=== PATIENT | female | born 1985 | race African-American/Black ===

== ENCOUNTER 2021-05-05 18:55 | Inpatient (IN) ==
[2021-05-05 19:55] LABS: Eosinophils # (auto) 0.03 K/uL (0-0.5); Eosinophils % (auto) 0.3 %; Hematocrit (blood only) 35.2 % (37-47); Hemoglobin 10.6 g/dL (12.0-16.0); Immature Granulocytes # (auto) 0.02 K/uL (0.00-0.02); Immature Granulocytes % (auto) 0.2 %; Lymphocytes # (auto) 1.24 K/uL (1.2-3.4); Lymphocytes % (auto) 10.4 %; Mean Corpuscular Hemoglobin 23.7 pg (25-34); Mean Corpuscular Hgb Conc 30.1 g/dL (32-36); Mean Corpuscular Volume 78.6 fL (80-100); Mean Platelet Volume 13.7 fL (7.4-10.4); Neutrophils # (auto) 10.01 K/uL (1.4-6.5); Neutrophils % (auto) 84.1 %; Platelet Count 375 K/uL (130-400); RDW Coefficient of Variation 14.7 % (11.5-14.5); RDW Standard Deviation 41.6 fL (36.4-46.3); Red Blood Count 4.48 M/uL (4.2-5.4)
[2021-05-05 20:24] LABS: Albumin Globulin Ratio 1.1 (0.9-2); BUN Creatinine Ratio 17.4 (10-20); Bilirubin,Total 1.3 mg/dl (0.2-1.0); Calcium 8.9 mg/dl (8.5-10.1); Creatinine Clr Calc Pharmacy 190.7 ml/min; Est GFR (African American) 147.3 ml/min; Est GFR (Non-African American) 127.1 ml/min; Globulin 3.6 gm/dl (2.5-4.0); Potassium 3.8 mmol/L (3.5-5.1); Total Protein 7.6 gm/dl (6.0-8.3)
[2021-05-05] MEDS ORDERED: SODIUM CHLORIDE 0.9% 1000ML 1,000 ML IV ONE (20:33)
[2021-05-05] MEDS ORDERED: KETOROLAC TROMETHAMINE 15 MG/ML VIAL IV STA (20:33)
[2021-05-05] MEDS: ONDANSETRON INJ 2 MG/ML 2 ML VIAL IV STA (20:52)
--- NOTE | 2021-05-05 21:18 | XRay Report ---
XR abdomen 2V w PA chest CLINICAL HISTORY: epigastric pain. COMPARISON STUDY: No previous studies for comparison. TECHNIQUE: Single view of the chest. Supine and upright views of the abdomen. FINDINGS: Single frontal view of the chest demonstrates the cardiomediastinal silhouette to be within normal li mits. The lungs are clear of acute alveolar opacities. There is no evidence for pleural effusion. The re is no evidence for vascular congestion. There is no acute osseous pathology. Abdomen: There is no free air or significant air-fluid levels present. The bowel gas pattern is withi n normal limits without evidence for dilatation or obstruction. However, there is evidence for fecal stasis within the ascending and transverse colon. There is no evidence for organomegaly or gross intr a-abdominal mass. No abnormal calcifications are seen along the course of the urinary tracts bilatera lly. No acute osseous pathology. IMPRESSION: 1. 1. No acute chest disease. 2. Fecal stasis involving the ascending and transverse colon. ACT 112: Negative or not required by law. Electronically signed by: Pb Love M.D. 05/05/2021 9:17 PM
--- NOTE | 2021-05-05 21:33 | Emergency Department Note ---
History of Present Illness General Chief Complaint: Abdominal Pain Stated Complaint: ABD PAIN Time Seen by Provider: 05/05/21 20:32 History of Present Illness Provider Complaint: abdominal pain Onset (ago): 8 hour(s) Pain Consistency: intermittent Location: RUQ and epigastric Radiation: R flank Severity: moderate Maximum Pain Intensity: 6 Current Pain Intensity: 6 Quality: + stabbing, + aching, + sharp and + dull Relieved By: + nothing Exacerbated By: + nothing Context: no foreign travel, no possible food poisoning, no sick contacts, no recent antibiotic use, no recent surgery/procedure or no recent injury Associated Symptoms: + nausea and + vomiting; no diarrhea, no fever, no chills, no constipation, no dysuria, no hematemesis, no hematochezia, no melena, no hematuria, no anorexia, no syncope, no headache, no neck pain, no chest pain, no weakness and no breathing difficulty Home Medications Medication Instructions Recorded Confirmed Type metformin 1,000 mg tablet 1,000 mg PO BID 05/05/21 05/05/21 History norethindrone 1 mg-ethinyl 1 tab PO PM 05/05/21 05/05/21 History estradiol 20 mcg (24)-iron 75 mg (4) tablet (Blisovi 24 Fe) sitagliptin 100 mg tablet (Januvia) 100 mg PO QAM 05/05/21 05/05/21 History Allergies Allergy/AdvReac Type Severity Reaction Status Date / Time No Known Allergies Allergy Unverified 05/05/21 22:01 Past Med/Surg History Medical History (Updated 05/05/21 @ 22:23 by Benjamin Null) No pertinent family history No pertinent past medical history Surgical History (Updated 05/05/21 @ 21:30 by Benjamin Null) No pertinent past surgical history Social History Smoking Status: Never smoker Preferred Language: Slovak Feels Safe at Home: Yes Review of Systems A total of 10 systems reviewed and were otherwise negative Physical Exam Vital Signs: Vital Signs - 24 hr 05/05/21 18:58 05/05/21 20:56 05/05/21 22:00 Temperature 36.2 C L Temperature Source Temporal Artery Sc an Pulse Rate 72 Pulse Rate [Right Finger] 70 92 H Pulse Rhythm Regular Pulse Rhythm [Righ t Finger] Regular Regular Pulse Strength Normal Pulse Strength [Ri ght Finger] Normal Normal Respiratory Rate 18 20 18 Respiratory Effort / Characteristics Non-Labored Sponta neous Non-Labored Non-Labored Respiratory Depth Normal Normal Normal Respiratory Patter n Regular Regular Blood Pressure 120/82 Blood Pressure [Le ft Arm] 139/92 138/60 Blood Pressure Libertad n 94 Blood Pressure Libertad n [Left Arm] 107 86 Blood Pressure Pos ition Sitting Blood Pressure Pos ition [Left Arm] Lying Lying Pulse Oximetry 100 98 98 Oxygen Delivery Me thod Room Air Room Air Room Air Sepsis Recent Feve r Within 48 Hours No Sepsis New/Unexpla ined Change in Men jessi Status N/A Sepsis Action Take n by Nursing No Action Required Physical Exam: Physical Exam GENERAL: She is oriented to person, place, and time. She appears well-developed and well-nourished. She does not appear distressed. HENT: Exam performed. -Head: Normocephalic and atraumatic. -Right Ear: External ear normal. No mastoid tenderness. -Left Ear: External ear normal. No mastoid tenderness. -Mouth/Throat: The oropharynx is clear and moist. No trismus in the jaw. No dental abscesses or uvula swelling. No oropharyngeal exudate or tonsillar abscesses. EYES: Conjunctivae and EOM are normal. Pupils are equal, round, and reactive to light. Right eye exhibits no discharge. Left eye exhibits no discharge. No scleral icterus. NECK: Normal range of motion. Neck supple. No JVD present. No spinous process tenderness present. No carotid bruit present. No rigidity. No tracheal deviation and normal range of motion present. No Brudzinski's sign and no Kernig's sign noted. CV: Normal rate, regular rhythm, normal heart sounds and intact distal pulses. There is no peripheral edema. Palpable radial pulses bue. PULM/CHEST: Effort normal and breath sounds normal. No respiratory distress. No stridor. She has no wheezes. She has no rales. -Chest Wall: She exhibits no tenderness. ABD: The abdomen is soft. Bowel sounds are normal. She has no distension. No mass is present. There is tenderness to palpation of the right upper quadrant and epigastric areas There is no rebound, no guarding, no Valladares's sign and no tenderness at McBurney's point. Rovsig negative MUSC/SKEL: Normal range of motion. There is no peripheral edema, tenderness or deformity. LYMPH: No cervical adenopathy. NEURO: She is alert and oriented to person, place, and time. She has normal strength. No cranial nerve deficit or sensory deficit. Coordination and gait normal. GCS eye subscore is 4. GCS verbal subscore is 5. GCS motor subscore is 6. Cerebellar tests wnl. SKIN: Skin is warm and dry. She is not diaphoretic. PSYCH: She has a normal mood and affect. Behavior is normal. Judgment and thought content normal. Course Course 2031: The patient was evaluated in room A10. A complete history and physical exam was performed Cardiac monitoring: An order was placed for continuous cardiac monitoring. The monitor shows a rate of 70 with sinus rhythm 1: Vital signs stable. Labs show an elevated lipase greater than 5000. Tota l bilirubin 1.3, AST 277, ALT 125, alkaline phosphatase 251. It is thought that the patient is suffering from pancreatitis most likely due to gallstones. Ultrasound is negative for acute cholecystitis. Acute abdominal series is negative. Patient will be admitted to the [facility] the hospitalist team for pancreatitis most likely secondary to gallstones. Dr. Justice's team will be notified. Administered Medications Discontinued Medications Sodium Chloride (Nss 1000ml) 1,000 mls @ 999 mls/hr IV .Q1H1M ONE Stop: 05/05/21 21:33 Last Admin: 05/05/21 20:53 Dose: 999 mls/hr Documented by: [id number] Ketorolac Tromethamine (Ketorolac Tromethamine 15 Mg/Ml Vial) 15 mg IV NOW STA Stop: 05/05/21 20:34 Last Admin: 05/05/21 20:53 Dose: 15 mg Documented by: [id number] Ondansetron HCl (Ondansetron Inj 2 Mg/Ml 2 Ml Vial) 4 mg IV NOW STA Stop: 05/05/21 20:34 Last Admin: 05/05/21 20:52 Dose: 4 mg Documented by: [id number] Admin: 05/05/21 20:52 Dose: 4 mg Documented by: [id number] Medical Decision Making Laboratory Data Result diagrams: 05/05/21 19:45 05/05/21 19:45 Lab Results 05/05/21 05/05/21 Range/Units 19:45 19:45 WBC 11.90 H (4.8-10.8) K/uL RBC 4.48 (4.2-5.4) M/uL Hgb 10.6 L (12.0-16.0) g/dL Hct 35.2 L (37-47) % MCV 78.6 L (80-100) fL MCH 23.7 L (25-34) pg MCHC 30.1 L (32-36) g/dL RDW Std Deviation 41.6 (36.4-46.3) fL RDW Coeff of Jose 14.7 H (11.5-14.5) % Plt Count 375 (130-400) K/uL MPV 13.7 H (7.4-10.4) fL Immature Gran % (Auto) 0.2 % Neut % (Auto) 84.1 % Lymph % (Auto) 10.4 % Rolette % (Auto) 5.0 % Eos % (Auto) 0.3 % Baso % (Auto) 0.0 % Neut # (Auto) 10.01 H (1.4-6.5) K/uL Lymph # (Auto) 1.24 (1.2-3.4) K/uL Rolette # (Auto) 0.60 H (0.11-0.59) K/uL Eos # (Auto) 0.03 (0-0.5) K/uL Baso # (Auto) 0.00 (0-0.2) K/uL Immature Gran # (Auto) 0.02 (0.00-0.02) K/uL Sodium 136 (136-145) mmol/L Potassium 3.8 (3.5-5.1) mmol/L Chloride 101 (98-107) mmol/L Carbon Dioxide 27 (21-32) mmol/L Anion Gap 8 (3-11) BUN 8 (6-23) mg/dl Creatinine 0.46 L (0.6-1.2) mg/dl Est Cr Clr Drug Dosing 190.7 ml/min Est GFR ( Amer) 147.3 ml/min Est GFR (Non-Af Amer) 127.1 ml/min BUN/Creatinine Ratio 17.4 (10-20) Glucose 339 H* (70-99) mg/dl Calcium 8.9 (8.5-10.1) mg/dl Total Bilirubin 1.3 H (0.2-1.0) mg/dl AST 277 H (13-39) U/L ALT 125 H (7-52) U/L Alkaline Phosphatase 251 H (34-104) U/L Total Protein 7.6 (6.0-8.3) gm/dl Albumin 4.0 (3.4-5.0) gm/dl Globulin 3.6 (2.5-4.0) gm/dl Albumin/Globulin Ratio 1.1 (0.9-2) Lipase 5912 H (11-82) U/L Imaging Data Radiologist's Impression: Gallbladder Ultrasound 05/05/21 20:33 US gallbladder LIMITED ABDOMEN CLINICAL HISTORY: RUQ pain. COMPARISON: None. TECHNIQUE: Multiple grayscale and color images of the right upper quadrant of the abdomen. FINDINGS: This is a limited examination due to overlying bowel gas. Pancreas: The head and body of pancreas are within normal limits. The tail is obscured by overlying bowel gas. Liver: Liver is increased in echogenicity characteristic of fatty infiltration. It is at the upper limits of normal in size measuring 17 mm. There is no evidence for a focal mass. There is no intrahepatic biliary duct dilatation. Gallbladder: The gallbladder is well distended with numerous intraluminal calculi and posterior acoustic shadowing demonstrated. There is no evidence for wall thickening or pericholecystic edema. There was reportedly a negative sonographic Valladares sign. Common Bile Duct: (CBD): It is normal in size measuring 4 mm. Inferior Vena Cava (IVC): The imaged IVC is patent. Right kidney: There is no evidence for hydronephrosis, calculus or gross renal mass. The kidney is normal in size. It measures 12.6 cm in greatest length. IMPRESSION: 1. Cholelithiasis with no ultrasound evidence for acute cholecystitis. 2. Limited evaluation of pancreas. 3. Fatty infiltration of the liver. ACT 112: Negative or not required by law. Electronically signed by: Pb Love M.D. 05/05/2021 10:16 PM Chest/Abdomen X-ray 05/05/21 20:34 XR abdomen 2V w PA chest CLINICAL HISTORY: epigastric pain. COMPARISON STUDY: No previous studies for comparison. TECHNIQUE: Single view of the chest. Supine and upright views of the abdomen. FINDINGS: Single frontal view of the chest demonstrates the cardiomediastinal silhouette to be within normal limits. The lungs are clear of acute alveolar opacities. T here is no evidence for pleural effusion. There is no evidence for vascular congestion. There is no acute osseous pathology. Abdomen: There is no free air or significant air-fluid levels present. The bowel gas pattern is within normal limits without evidence for dilatation or obstruction. However, there is evidence for fecal stasis within the ascending and transverse colon. There is no evidence for organomegaly or gross intra- abdominal mass. No abnormal calcifications are seen along the course of the urinary tracts bilaterally. No acute osseous pathology. IMPRESSION: 1. 1. No acute chest disease. 2. Fecal stasis involving the ascending and transverse colon. ACT 112: Negative or not required by law. Electronically signed by: Pb Love M.D. 05/05/2021 9:17 PM MDM Narrative Vital signs stable. Labs show an elevated lipase greater than 5000. Total bilirubin 1.3, AST 277, ALT 125, alkaline phosphatase 251. It is thought that the patient is suffering from pancreatitis most likely due to gallstones. Ultrasound is negative for acute cholecystitis. Acute abdominal series is negative. [facility] for pancreatitis most likely secondary to gallstones. Dr. Justice's team will be notified. Impression & Plan Pancreatitis Discharge Plan Visit Data Chief Complaint: Abdominal Pain Stated Complaint: ABD PAIN ED Provider: Benjamin Null Discharge Problem: Pancreatitis Patient Disposition: Admitted As Inpatient Forms Stand Alone Forms: [facility] Guide Financial Prescriptions Prescriptions: No Action metformin 1,000 mg tablet 1,000 mg PO BID RF: 0 norethindrone-e.estradiol-iron [Blisovi 24 Fe] 1 mg-20 mcg (24)/75 mg (4) tablet 1 tab PO PM RF: 0 Januvia 100 mg tablet 100 mg PO QAM RF: 0 Referrals Referrals: Elijah Merritt MD [Primary Care Provider] -
--- NOTE | 2021-05-05 22:17 | Ultrasound Report ---
US gallbladder LIMITED ABDOMEN CLINICAL HISTORY: RUQ pain. COMPARISON: None. TECHNIQUE: Multiple grayscale and color images of the right upper quadrant of the abdomen. FINDINGS: This is a limited examination due to overlying bowel gas. Pancreas: The head and body of pancreas are within normal limits. The tail is obscured by overlying b owel gas. Liver: Liver is increased in echogenicity characteristic of fatty infiltration. It is at the upper li mits of normal in size measuring 17 mm. There is no evidence for a focal mass. There is no intrahepat ic biliary duct dilatation. Gallbladder: The gallbladder is well distended with numerous intraluminal calculi and posterior acou stic shadowing demonstrated. There is no evidence for wall thickening or pericholecystic edema. There was reportedly a negative sonographic Valladares sign. Common Bile Duct: (CBD): It is normal in size measuring 4 mm. Inferior Vena Cava (IVC): The imaged IVC is patent. Right kidney: There is no evidence for hydronephrosis, calculus or gross renal mass. The kidney is n ormal in size. It measures 12.6 cm in greatest length. IMPRESSION: 1. Cholelithiasis with no ultrasound evidence for acute cholecystitis. 2. Limited evaluation of pancreas. 3. Fatty infiltration of the liver. ACT 112: Negative or not required by law. Electronically signed by: Pb Love M.D. 05/05/2021 10:16 PM
[2021-05-05] MEDS ORDERED: ONDANSETRON INJ 2 MG/ML 2 ML VIAL IV STA (22:20)
[2021-05-05] MEDS ORDERED: MoRPHine SULFATE 4 MG/ML 1 ML CARP\\VIAL IV STA ×2 (22:20→22:58)
[2021-05-05] MEDS ORDERED: SODIUM CHLORIDE 0.9% 1000ML 1,000 ML IV SCH (22:30)
--- NOTE | 2021-05-05 22:48 | Surgery Consultation ---
Date of Consultation May 05, 2021 Assessment & Plan (1) Pancreatitis: Based on the patient's history and imaging findings I suspect her pancreatitis is secondary to gallstones. She is being admitted on the hospitalist service. We recommend proceeding as follows: Implement and maintain n.p.o. status Hydrate with IV fluids Provide analgesics Provide antiemetics Follow serial labs I discussed with the medical admitting service. They have indicated that they will likely obtain an MRCP and consider consulting gastroenterology based on the results of this study as she may require ERCP. Consideration will be given to performing cholecystectomy once we have the above information and her acute pancreatitis has improved. Will continue to follow along while patient is hospitalized. Supervising Physician Co-Signing Physician Notes Dr. 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 Patient says that she was in her usual state of health when earlier this afternoon she developed severe epigastric pain. She notes that the pain radiates to her back. She had associated nausea vomiting but denies any fevers, shakes, chills. She also notes some right upper quadrant pain to a lesser degree. Patient notes that the pain was palliated with some pain medicine administered in the emergency department. She did not identify any provocative factors. Patient says that she has never experienced any pain like this before. She specifically notes that in the past several months she has not experienced any postprandial pain. Patient denies any alcohol use. She has not had any recent travel. She has not had any recent changes in her medication regimen. She denies any prior abdominal surgeries. She does note that she is diabetic. She notes that several months ago her hemoglobin A1c was over 11 but she has since been started on metformin and Januvia and her hemoglobin A1c has decreased to approximately 7.5. Because of her sympt omatology she presented to the emergency department at [facility]. In the emergency department patient had labs and imaging which I independently reviewed. Patient had an obstruction series that showed no active disease in the chest. There is no evidence of small bowel obstruction on the study. A gallbladder ultrasound was performed that showed cholelithiasis. There is no ev idence of pericholecystic edema, gallbladder wall thickening, or other findings consistent with cholecystitis. Labs were performed and a CBC revealed white blood cell count was 11.9. Her hemoglobin and hematocrit were 10.6 and 35.2. Her platelet count was noted to be within normal range. Chemistry profile showed sodium, potassium, and BUN were all within the normal range. Her creatinine was actually low at 0.46. Glucose was elevated at 339. Her total bilirubin had a slight elevation at 1.3. Her transaminases were elevated with an AST of 277 and an ALT of 125. Alkaline phosphatase was elevated at 251. The patient was noted to have an elevated lipase at 5912. A COVID test was performed and was noted be negative. At the time of my interview the patient was in no distress Allergies Allergy/AdvReac Type Severity Reaction Status Date / Time No Known Allergies Allergy Unverified 05/05/21 22:01 Home Medications Medication Instructions Recorded Confirmed Type metformin 1,000 mg tablet 1,000 mg PO BID 05/05/21 05/05/21 History norethindrone 1 mg-ethinyl 1 tab PO PM 05/05/21 05/05/21 History estradiol 20 mcg (24)-iron 75 mg (4) tablet (Blisovi 24 Fe) sitagliptin 100 mg tablet (Januvia) 100 mg PO QAM 05/05/21 05/05/21 History Patient History Medical History No pertinent family history No pertinent past medical history Surgical History No pertinent past surgical history Social History Smoking Status: Never smoker Hx Alcohol Use: No Hx Substance Use: No Preferred Language: Chadian Communication Ability: Effective Teachers' Assistant Required: No Beliefs That Will Affect Care: None Current Living Situation: Alone Feels Safe at Home: Yes Safety Concerns: Feels Safe At This Time Assistive Devices: None Review of Systems Constitutional: no fever and no chills Eyes: no diplopia Ear, Nose, Mouth, Throat: no ear pain Respiratory: no cough and no dyspnea Cardiovascular: no chest pain Gastrointestinal: + abdominal pain, + nausea and + vomiting Genitourinary: no dysuria Musculoskeletal: + back pain (Radiating from abdomen) Integumentary: no rash Neurologic: no localized weakness Physical Exam Constitutional: well developed and well nourished; no acute distress Eyes: PERRL, conjunctivae normal, anicteric sclerae ENMT: Ears: no hearing impairment and no external ear abnormality No sublingual jaundice noted Neck: trachea midline Respiratory: Lungs are overall clear without rales, rhonchi, wheezing. Patient did have decreased respiratory effort due to abdominal pain. She was not using accessory muscles to aid in respiration Cardiovascular: Rate/Rhythm: regular rate and regular rhythm Gastrointestinal (Abdomen): Abdomen is soft and nondistended. Patient did have significant tenderness with palpation of even a light nature in the epigastric area as well as the right upper quadrant. Musculoskeletal: No gross orthopedic abnormalities. No calf tenderness. Skin: no rashes Neurologic: moves all extremities Psychiatric: A+Ox3, euthymic affect Results & Data ([facility]) Vital Signs (Past 12 Hours) Vital Signs Temp Pulse Pulse Resp BP BP Pulse Ox 05/05/21 22:00 92 H 18 138/60 98 05/05/21 20:56 70 20 139/92 98 05/05/21 18:58 36.2 C L 72 18 120/82 100 PG Care Time/CCT Total # of Minutes Spent Total Time Spent with Patient: Total time spent is greater than 50% in coordination of care (as documented) at patient's floor/unit and/or counseling patient: Coding Level of Care Code 45364 Inpt Consult Level 5 Diagnoses Pancreatitis K85.10 Acute pancreatitis complication: unspecified Chronicity: acute Pancreatitis type: biliary (1) Pancreatitis Acute pancreatitis complication: unspecified Chronicity: acute Pancreatitis type: biliary Qualified Code(s): K85.10 - Biliary acute pancreatitis without necrosis or infection
[2021-05-05] MEDS ORDERED: NovoLIN-R INSULIN PER UNIT CHARGE IV STA (23:28)
--- NOTE | 2021-05-05 23:30 | History & Physical Report ---
Date of Service May 05, 2021 Assessment & Plan (1) Pancreatitis: Plan: 35 yo F w/ pMHx. of PCOS, BMI 32.5, DM presenting with abdominal pain Pancreatitis lipase 5912, T. bili 1.3, AST 237 ALT 125, ALP 125 US with cholelithiasis without cholecystitis likely due to gallstones given labs and US findings - started Zosyn for concern of obstruction leading to cholangitis given elevated ALP and slight elevation in WBC although this may represent stress reaction nl. HR and temp, could consider stopping if no concern for infection - blood cultures ordered - GI consulted, for possible need for ERCP - MRCP ordered - NPO - IVF LR @ 250h X4 bags - IV morphine for pain - IV Zofran for nausea (EKG ordered to evaluate QTc) - surgery consulted, for possible cholecystectomy after improvement in pancreatitis DM, bsg >300 on admission anion gap nl. at 8 - given 7U regular insulin - held home oral medication - initiated SSI along with 5BID of long acting - IVF as above Code: full Diet: NPO DVT: SCDs History of Present Illness Chief Complaint: abdominal pain Primary Care Provider: Elijah Merritt MD Sabrina Poole has a past medical history of PCOS and diabetes and presents with abdominal pain. She developed the pain this afternoon and describes it as unbearable lower and upper abdominal pain as well as going to her back. The pain was described 10/10 initially and improved slight while here. She initial though it was gas as it started after she ate. She has had trouble sleeping at night due to recent stressors and has not taken her diabetes medication over the last 2 days. Her blood sugars at home are typically in the range of 135-200. Her most recent A1C is 7.5 down from 10. Social Hx.: denies tobacco, ETOH, rec. drug use ED course: Toradol, Morphine, 1L IVF, Zofran Allergies Allergy/AdvReac Type Severity Reaction Status Date / Time No Known Allergies Allergy Unverified 05/05/21 22:01 Home Medications Medication Instructions Recorded Confirmed Type metformin 1,000 mg tablet 1,000 mg PO BID 05/05/21 05/05/21 History norethindrone 1 mg-ethinyl 1 tab PO PM 05/05/21 05/05/21 History estradiol 20 mcg (24)-iron 75 mg (4) tablet (Blisovi 24 Fe) sitagliptin 100 mg tablet (Januvia) 100 mg PO QAM 05/05/21 05/05/21 History Past Med/Surg History Medical History No pertinent family history No pertinent past medical history Surgical History No pertinent past surgical history Social History Smoking Status: Never smoker Hx Alcohol Use: No Hx Substance Use: No Preferred Language: Mosotho Communication Ability: Effective Tongue And Quarter Stitcher Required: No Beliefs That Will Affect Care: None Current Living Situation: Alone Feels Safe at Home: Yes Safety Concerns: Feels Safe At This Time Assistive Devices: None Review of Systems Review of Systems: Constitutional: denies fever, chills, admits nausea and 1 episode of vomiting, and weight loss that she attributes to diet Head: denies trauma, confusion, lightheadedness, vision changes Neurologic: denies focal weakness ENT: denies stuffiness, sneezing, sore throat, hoarseness, epistaxis Cardiac: denies palpitations, leg edema admits chest pain along with abdominal pain Pulm.: denies cough, shortness of breath, hemoptysis, sputum production GI: denies diarrhea, constipation, blood in stool : denies dysuria, frequency, urgency Physical Exam Constitutional: well developed, well nourished, + in distress and + overweight Eyes: PERRL, conjunctivae normal, anicteric sclerae ENMT: external ear and nose normal, oropharynx normal Neck: normal visual inspection Respiratory: normal respiratory effort, lungs clear to auscultation Cardiovascular: RRR, no murmur, no edema Gastrointestinal (Abdomen): - decreased bowel sounds - soft, no guarding - tender to palpitation Musculoskeletal: no cyanosis or clubbing, extremities motor strength 5/5 Skin: no rashes, warm and dry Neurologic: no focal motor deficits Psychiatric: A+Ox3, euthymic affect Results & Data Results & Data ([facility]) Vital Signs (Past 12 Hours) Vital Signs Temp Pulse Pulse Resp BP BP Pulse Ox 05/05/21 22:00 92 H 18 138/60 98 05/05/21 20:56 70 20 139/92 98 05/05/21 18:58 36.2 C L 72 18 120/82 100 CBC Results Results Complete Blood Count Results: RBC 4.48 M/uL (4.2-5.4) 05/05/21 WBC 11.90 K/uL (4.8-10.8) H 05/05/21 Hgb 10.6 g/dL (12.0-16.0) L 05/05/21 Hct 35.2 % (37-47) L 05/05/21 Plt Count 375 K/uL (130-400) 05/05/21 Chemistry (BMP) Results BMP Results: Sodium 136 mmol/L (136-145) 05/05/21 Potassium 3.8 mmol/L (3.5-5.1) 05/05/21 Chloride 101 mmol/L (98-107) 05/05/21 Carbon Dioxide 27 mmol/L (21-32) 05/05/21 Anion Gap 8 (3-11) 05/05/21 BUN 8 mg/dl (6-23) 05/05/21 Creatinine 0.46 mg/dl (0.6-1.2) L 05/05/21 Glucose 339 mg/dl (70-99) H* 05/05/21 Code Status & VTE Plan VTE Prophylaxis Plan VTE Prophylaxis will be ordered: Yes Supervising Physician Co-Signing Physician Notes Patient seen and examined, chart reviewed, case discussed with Dr. Khan and I agree with the assessment and plan as above. 35yo female with acute onset epigastric and RUQ pain. US with cholelithiasis Elevated Lipase Exam is significant for tender abdomen with voluntary guarding, otherwise unremarkable Patient is afebrile and HD stable Assessment/Plan -IVF, pain control and anti-emetics -MRCP -Repeat LFTs in AM -General Surgery re: cholecystectomy -Remainder as above Resident Activity Tracking Resident Involvement: Resident Care Provided Care Provided: Adult Hospital Medicine (1) Pancreatitis Acute pancreatitis complication: unspecified Chronicity: acute Pancreatitis type: biliary Qualified Code(s): K85.10 - Biliary acute pancreatitis without necrosis or infection
[2021-05-06] MEDS ORDERED: PIPERACILL/TAZOBAC CONSULT ACTIVE PRN (00:41)
[2021-05-06] MEDS ORDERED: MoRPHine SULFATE 4 MG/ML 1 ML CARP\\VIAL IV PRN (00:41)
[2021-05-06] MEDS ORDERED: GLUCOSE 40% GEL 15 GM TUBE PO PRN (00:41)
[2021-05-06] MEDS ORDERED: GLUCAGON FOR INJ 1 MG VIAL SQ PRN (00:41)
[2021-05-06] MEDS ORDERED: GLUCOSE 10 TABS/TUBE PO PRN (00:41)
[2021-05-06] MEDS ORDERED: DEXTROSE 50% 50 ML SYRINGE IV PRN (00:41)
[2021-05-06] MEDS ORDERED: MoRPHine SULFATE 2 MG/ML CARP IV PRN (00:41)
[2021-05-06] MEDS ORDERED: CARBOHYDRATES FOR HYPOGLYCEMIA PO PRN (00:41)
[2021-05-06] MEDS ORDERED: PIPERACILLIN/TAZOBACTAM 3.375 GM in DEXTROSE 5% 100 ML IV ONE (01:00)
[2021-05-06] MEDS: LACTATED RINGER'S 1,000 ML IV SCH ×4 (01:00→15:10)
[2021-05-06] MEDS: INSULIN ASPART PER UNIT SC SCH ×4 (01:51→17:28)
[2021-05-06] MEDS: INSULIN GLARGINE SOLOSTAR 100 UNITS/ML 3 ML PEN SC SCH ×3 (01:52→20:39)
[2021-05-06] MEDS ORDERED: ONDANSETRON INJ 2 MG/ML 2 ML VIAL IV PRN (01:57)
--- NOTE | 2021-05-06 03:37 | Billing Data ---
Date of Service May 05, 2021 Coding Level of Care Code 66768 Initial Inpt Care Lvl 2
--- NOTE | 2021-05-06 05:25 | Surgery Progress Note ---
Date of Service May 06, 2021 Assessment & Plan (1) Pancreatitis: Plan: Patient has been admitted by the medical service we are proceeding as follows: Patient is currently n.p.o. and should remain such until bowel function improves and her pancreatitis improves Continue analgesics Continue antiemetics Continue IV fluid for hydration Follow serial labs Due to elevated LFTs and MRCP has been ordered and GI evaluation has been requested. We are waiting for MRCP to be completed as well as GI input Consideration will be given to performing cholecystectomy once pancreatitis is improved and also pending MRCP results as well as GI recommendations Admission and Anticipated Discharge Date Admission Date: May 05, 2021 Supervising Physician Co-Signing Physician Notes Dr. Barnes-plan as per Mookie Alarcon Check a.m. lipase-lap segundo at some point-possibly tomorrow or Saturday depending on her work-up Await MRCP and GI evaluation Subjective Patient is resting comfortably in bed. Since admission she continues to have epigastric abdominal pain that is alleviated somewhat with analgesics. She denies any nausea vomiting. She has not had any bowel movement or flatus since admission. Physical Exam Gastrointestinal (Abdomen): Abdomen is soft and minimally distended. Bowel sounds are hypoactive. Tenderness noted with palpation in the epigastric area as well as right upper quadrant. Results & Data ([facility]) Vital Signs (Past 12 Hours) Vital Signs Temp Pulse Pulse Resp BP BP Pulse Ox 05/06/21 00:35 36.4 C L 75 18 127/74 98 05/06/21 00:14 76 16 146/79 H 97 05/05/21 22:00 92 H 18 138/60 98 05/05/21 20:56 70 20 139/92 98 05/05/21 18:58 36.2 C L 72 18 120/82 100 PG Care Time/CCT Total # of Minutes Spent Total Time Spent with Patient: Total time spent is greater than 50% in coordination of care (as documented) at patient's floor/unit and/or counseling patient: Coding Level of Care Code 81011 Subseq Hosp Care Lvl 3 Diagnoses Pancreatitis K85.10 Acute pancreatitis complication: unspecified Chronicity: acute Pancreatitis type: biliary (1) Pancreatitis Acute pancreatitis complication: unspecified Chronicity: acute Pancreatitis type: biliary Qualified Code(s): K85.10 - Biliary acute pancreatitis without necrosis or infection
[2021-05-06] MEDS: PIPERACILLIN/TAZOBACTAM 3.375 GM in DEXTROSE 5% 100 ML IV SCH ×3 (06:01→20:39)
[2021-05-06 06:40] LABS: Eosinophils # (auto) 0.01 K/uL (0-0.5); Eosinophils % (auto) 0.1 %; Hematocrit (blood only) 28.5 % (37-47); Hemoglobin 8.5 g/dL (12.0-16.0); Immature Granulocytes # (auto) 0.01 K/uL (0.00-0.02); Immature Granulocytes % (auto) 0.1 %; Lymphocytes # (auto) 0.98 K/uL (1.2-3.4); Lymphocytes % (auto) 12.8 %; Mean Corpuscular Hemoglobin 23.2 pg (25-34); Mean Corpuscular Hgb Conc 29.8 g/dL (32-36); Mean Corpuscular Volume 77.9 fL (80-100); Mean Platelet Volume 12.6 fL (7.4-10.4); Monocytes % (auto) 5.2 %; Neutrophils # (auto) 6.24 K/uL (1.4-6.5); Neutrophils % (auto) 81.8 %; Platelet Count 343 K/uL (130-400); RDW Coefficient of Variation 14.4 % (11.5-14.5); Red Blood Count 3.66 M/uL (4.2-5.4); White Blood Count 7.64 K/uL (4.8-10.8)
[2021-05-06 07:16] LABS: Anion Gap 7 (3-11); BUN Creatinine Ratio 25.6 (10-20); Blood Urea Nitrogen 10 mg/dl (6-23); Calcium 7.7 mg/dl (8.5-10.1); Carbon Dioxide 26 mmol/L (21-32); Chloride 107 mmol/L (98-107); Est GFR (African American) > 150.0 ml/min; Est GFR (Non-African American) 134.2 ml/min; Glucose 158 mg/dl (70-99); Potassium 3.5 mmol/L (3.5-5.1); Sodium 140 mmol/L (136-145)
--- NOTE | 2021-05-06 07:19 | Hospitalist Progress Note ---
Date of Service May 06, 2021 Assessment & Plan (1) Pancreatitis: Plan: 35yo with DM2 and PCOS presents with a one-day history abdominal pain. Pancreatitis On admission, lipase 5912, T. bili 1.3, AST 237 ALT 125, ALP 125 Ultrasound demonstrating cholelithiasis without cholecystitis; suspect gallstone pancreatitis On zosyn d/t concern for cholangitis given elevated AlkP and WBC, though this may represent stress reaction; patient afebrile Blood cultures pending GI consulted, recommends MRCP and surgical consult MRCP without sign of biliary obstruction Surgery consulted, will likely perform cholecystectomy Saturday NPO LR @ 150mL/hr Continue pain control with morphine, continue zofran prn Trend CBC, CMP, lipase Microcytic anemia - iron studies ordered. DM2 HbA1c 11.3% (09/2020), repeat A1c ordered Patient's home regimen held on admission Continue BSG checks, sliding-scale insulin, hypoglycemic protocol Continue glargine 5u bid FEN: NPO, LR @ 150mL/hr Code status: full code DVT ppx: SCDs Consults: GI, general surgery Dispo: med/surg Admission and Anticipated Discharge Date Admission Date: May 05, 2021 Supervising Physician Co-Signing Physician Notes Resident Physician Supervision Note: I independently interviewed and examined the patient and verified the monge history and physical, reviewed labs and image studies and agree with resident Dr. Rosario findings and care plan. Subjective Patient seen and evaluated at bedside this morning. No acute events overnight. Patient feels well today and notes her pain has significantly improved since admission. Pain currently at a 5/10, worse with movement. Denies nausea or vomiting at this time. No other concerns or complaints at this time. Patient denies CP, SOB, lightheadedness, dizziness, and diarrhea. Review of Systems Review of Systems: See HPI Physical Exam Physical Exam: Constitutional: well-appearing, no acute distress CV: regular rhythm, no murmur appreciated, extremities well-perfused, no LE edema Resp: CTABL, no wheezes/rales/rhonchi appreciated, no increased work of breathing GI: soft, nondistended, mild generalized tenderness, moderate tenderness of epigastrium and RUQ, BS present Neuro: alert, oriented, no focal neurologic deficit appreciated Results & Data Results & Data ([facility]) Vital Signs (Past 12 Hours) Vital Signs Temp Pulse Resp BP Pulse Ox 05/06/21 00:35 36.4 C L 75 18 127/74 98 05/06/21 00:14 76 16 146/79 H 97 05/05/21 22:00 92 H 18 138/60 98 05/05/21 20:56 70 20 139/92 98 Resident Activity Tracking Resident Involvement: Resident Care Provided Care Provided: Adult Hospital Medicine (1) Pancreatitis Acute pancreatitis complication: unspecified Chronicity: acute Pancreatitis type: biliary Qualified Code(s): K85.10 - Biliary acute pancreatitis without necrosis or infection
[2021-05-06 09:58] LABS: Total Protein 5.8 gm/dl (6.0-8.3)
--- NOTE | 2021-05-06 11:08 | Magnetic Resonance Report ---
MRCP CLINICAL HISTORY: Abdominal pain. Concern for gallstone pancreatitis. TECHNIQUE: Utilizing a 1.5 Sarahi magnet and dedicated coil, multiplanar, multiecho imaging of the [facility] er abdomen was performed utilizing heavily T2 weighted pulsing sequences without IV contrast. COMPARISON STUDY: Right upper quadrant ultrasound May 05, 2021. FINDINGS: Trace bilateral pleural effusions and trace perihepatic fluid is noted. Small amount of per ipancreatic fluid is noted. This extends into the bilateral anterior pararenal spaces. No peripancrea tic fluid collection is present. The course and caliber of the main pancreatic duct is normal. There is no biliary ductal dilatation. The common bile duct measures 3 mm in caliber. No common bile duct c alculi are identified although sensitivity is mildly diminished given motion artifact. Numerous small gallstones within the gallbladder are noted. The gallbladder is not distended. Moderate gallbladder wall thickening has developed since ultrasound of May 05, 2021. No hepatic lesions are identified on unenhanced exam. Unenhanced images of the spleen, adrenal glands and kidneys are unremarkable. Th ere is no hydronephrosis. The caliber of visualized small and large bowel are normal. There is no abd ominal lymphadenopathy. IMPRESSION: 1. No biliary ductal dilatation. No common bile duct calculi identified although sensitivity for dete ction of small calculi is diminished on this exam. 2. Cholelithiasis. Interval development of moderate gallbladder wall thickening. Although acute segundo cystitis is within the differential, wall thickening is a nonspecific finding and the gallbladder is not distended. No sonographic Valladares sign was reported on ultrasound of May 05, 2021. 3. Peripancreatic fluid extending into the bilateral anterior pararenal spaces consistent with acute pancreatitis. No peripancreatic fluid collection. ACT 112: Negative or not required by law. Electronically signed by: Feroz Galvan M.D. 05/06/2021 11:07 AM
--- NOTE | 2021-05-06 11:31 | Gastrointestinal Consultation ---
Date of Consultation May 06, 2021 Assessment & Plan (1) Pancreatitis: Presentation consistent with uncomplicated acute gallstone pancreatitis. No signs of biliary obstruction on MRI. Certainly follow daily LFTs IV fluids IV pain control Cholecystectomy per General surgery Call with questions. History of Present Illness Reason for Consultation: Acute onset abdominal pain in the setting of elevated LFTs and pancreatitis Attending Physician: Holly Etienne MD History of Present Illness This is a pleasant 35-year-old female with history of PCOS and diabetes who presents with acute onset of right upper quadrant abdominal pain after eating associated with nausea vomiting she has not had pain like this before, this came on all of a sudden without colicky symptoms prior. She describes the pain as sharp in nature in the epigastric and right upper quadrant it was very acute yesterday, states that the pain is much improved today. On presentation she had a bilirubin of 1.3 and AST of 277 alkaline phosphatase of 251 white count was 11 down to 7 this morning with normal electrolytes hematocrit. LFTs are pending today, she was placed on Zosyn last night, underwent MRCP today that I reviewed, which shows no biliary duct dilation, does show concerns of cholecystitis. Overall she is improved today. Trace bilateral pleural effusions and trace perihepatic fluid is noted. Small amount of peripancreatic fluid is noted. This extends into the bilateral anterior pararenal spaces. No peripancreatic fluid collection is present. The course and caliber of the main pancreatic duct is normal. There is no biliary ductal dilatation. The common bile duct measures 3 mm in caliber. No common bile duct calculi are identified although sensitivity is mildly diminished given motion artifact. Numerous small gallstones within the gallbladder are noted. The gallbladder is not distended. Moderate gallbladder wall thickening has developed since ultrasound of May 05, 2021. No hepatic lesions are identified on unenhanced exam. Unenhanced images of the spleen, adrenal glands and kidneys are unremarkable. There is no hydronephrosis. The caliber of visualized small and large bowel are normal. There is no abdominal lymphadenopathy. IMPRESSION: 1. No biliary ductal dilatation. No common bile duct calculi identified although sensitivity for detection of small calculi is diminished on this exam. 2. Cholelithiasis. Interval development of moderate gallbladder wall thickening. Although acute cholecystitis is within the differential, wall thickening is a nonspecific finding and the gallbladder is not distended. No sonographic Valladares sign was reported on ultrasound of May 05, 2021. 3. Peripancreatic fluid extending into the bilateral anterior pararenal spaces consistent with acute pancreatitis. No peripancreatic fluid collection. Allergies Allergy/AdvReac Type Severity Reaction Status Date / Time No Known Allergies Allergy Unverified 05/05/21 22:01 Home Medications Medication Instructions Recorded Confirmed Type metformin 1,000 mg tablet 1,000 mg PO BID 05/05/21 05/05/21 History norethindrone 1 mg-ethinyl 1 tab PO PM 05/05/21 05/05/21 History estradiol 20 mcg (24)-iron 75 mg (4) tablet (Blisovi 24 Fe) sitagliptin 100 mg tablet (Januvia) 100 mg PO QAM 05/05/21 05/05/21 History Patient History Medical History No pertinent family history No pertinent past medical history Surgical History No pertinent past surgical history Social History Smoking Status: Never smoker Hx Alcohol Use: No Hx Substance Use: No Preferred Language: Azerbaijani Communication Ability: Effective Anatomy Professor Required: No Beliefs That Will Affect Care: None Current Living Situation: Alone Feels Safe at Home: Yes Safety Concerns: Feels Safe At This Time Assistive Devices: None Review of Systems Review of Systems: And systems negative except for stated as above Results & Data ([facility]) Vital Signs (Past 12 Hours) Vital Signs Temp Pulse Resp BP Pulse Ox 05/06/21 07:00 36.9 C 82 20 131/88 95 05/06/21 00:35 36.4 C L 75 18 127/74 98 05/06/21 00:14 76 16 146/79 H 97 (1) Pancreatitis Acute pancreatitis complication: unspecified Chronicity: acute Pancreatitis type: biliary Qualified Code(s): K85.10 - Biliary acute pancreatitis without necrosis or infection
[2021-05-06 12:17] LABS: Hematocrit (blood only) 28.4 % (37-47); Hemoglobin 8.3 g/dL (12.0-16.0)
[2021-05-06 13:20] LABS: Albumin Level 3.1 gm/dl (3.4-5.0); Bilirubin Direct 0.2 mg/dl (0-0.2); Bilirubin,Total 0.7 mg/dl (0.2-1.0)
[2021-05-06 15:32] LABS: Ferritin 4.6 ng/ml (8-388)
[2021-05-06 16:07] LABS: Appearance Urine Clear (Clear); Bilirubin Urine Negative (Negative); Blood Urine Negative (Negative); Color Urine Yellow; Glucose Urine UA Negative (Negative); Ketones Urine 1+ (Negative); Leukocyte Esterase Urine Negative (Negative); Nitrite Urine Negative (Negative); Protein Urine Negative (Negative); Specific Gravity Urine 1.016 (1.000-1.030); Urobilinogen Urine Negative (Negative)
--- NOTE | 2021-05-06 16:21 | Surgery Progress Note ---
Date of Service May 06, 2021 Assessment & Plan (1) Gallstone pancreatitis: Plan: MRCP is essentially negative for common bile duct defect Gallbladder is moderately distended with thickened wall and gallstones No plan for ERCP I discussed the plan of laparoscopic cholecystectomy possible open cholecystectomy with the patient We will proceed tomorrow N.p.o. after midnight and continue IV antibiotics Admission and Anticipated Discharge Date Admission Date: May 05, 2021 Results & Data ([facility]) Vital Signs (Past 12 Hours) Vital Signs Temp Pulse Resp BP Pulse Ox 05/06/21 15:09 37.1 C 85 20 136/89 94 05/06/21 07:00 36.9 C 82 20 131/88 95 PG Care Time/CCT Total # of Minutes Spent Total Time Spent with Patient: Total time spent is greater than 50% in coordination of care (as documented) at patient's floor/unit and/or counseling patient: Coding Level of Care Code None Diagnoses Gallstone pancreatitis K85.10
[2021-05-06] MEDS ORDERED: KETOROLAC TROMETHAMINE 15 MG/ML VIAL IV STA (20:11)
[2021-05-07] MEDS: INSULIN ASPART PER UNIT SC SCH ×5 (00:50→21:08)
[2021-05-07] MEDS: PIPERACILLIN/TAZOBACTAM 3.375 GM in DEXTROSE 5% 100 ML IV SCH ×3 (05:47→22:36)
--- NOTE | 2021-05-07 05:48 | Surgery Progress Note ---
Date of Service May 07, 2021 Assessment & Plan (1) Gallstone pancreatitis: Plan: Patient has been admitted by the medical service. We are proceeding as follows: Continue IV fluid for hydration Continue antiemetics Continue analgesics MRCP was performed that showed gallbladder wall thickening. There is no evidence of choledocholithiasis Yesterday's labs showed improvement of lipase and LFTs Plan refill her cholecystectomy at time to be determined by Dr. Barnes Admission and Anticipated Discharge Date Admission Date: May 05, 2021 Supervising Physician Co-Signing Physician Notes Dr Barnes- for laparoscopic cholecystectomy today Subjective Patient is resting in bed. She notes her epigastric pain is still present but has overall improved since admission. She denies any nausea vomiting. No bowel movement or flatus. Physical Exam Gastrointestinal (Abdomen): Abdomen is soft. There continues to be pain with palpation in the epigastric area but appears less severe than what was noted previously Results & Data ([facility]) Vital Signs (Past 12 Hours) Vital Signs Temp Pulse Resp BP Pulse Ox 05/06/21 23:06 36.9 C 80 17 130/86 93 PG Care Time/CCT Total # of Minutes Spent Total Time Spent with Patient: Total time spent is greater than 50% in coordination of care (as documented) at patient's floor/unit and/or counseling patient: Coding Level of Care Code 17396 Subseq Hosp Care Lvl 1 Diagnoses Gallstone pancreatitis K85.10
--- NOTE | 2021-05-07 07:36 | Hospitalist Progress Note ---
Date of Service May 07, 2021 Assessment & Plan (1) Pancreatitis: Plan: 35yo with DM2 and PCOS presents with a one-day history abdominal pain, found to have gallstone pancreatitis. Patient underwent cholecystectomy on 05/07/21. Gallstone pancreatitis s/p cholecystectomy On admission, lipase 5912, T. bili 1.3, AST 237 ALT 125, ALP 125 Ultrasound and MRCP consistent with gallstone pancreatitis without sign of biliary obstruction GI and surgery consulted; cholecystectomy performed on 05/07, patient tolerated the procedure well without complications IVF discontinued Continue pain control with morphine, continue zofran prn Continue zosyn Clear liquid DM2 diet, advance as tolerated Trend CBC, CMP, lipase Microcytic anemia Iron studies consistent with iron deficiency anemia Venofer 200mg IV x1 given (05/07) Recommend ferrous citrate qMWF upon discharge -To get menstrual and dietary history when more awake and stable. DM2 HbA1c 11.3% (09/2020), repeat A1c ordered Patient's home regimen held on admission Continue BSG checks, sliding-scale insulin, hypoglycemic protocol Continue glargine 5u bid Mild hypokalemia Repleted with KCl 40mEq PO x1 (05/07) Trend BMP FEN: clear liquid, DM2 diet Code status: full code DVT ppx: SCDs Consults: GI, general surgery Dispo: med/surg Admission and Anticipated Discharge Date Admission Date: May 05, 2021 Supervising Physician Co-Signing Physician Notes Resident Physician Supervision Note: I independently interviewed and examined the patient and verified the monge history and physical, reviewed labs and image studies and agree with resident Dr. Rosario findings and care plan. Subjective Patient seen and evaluated at bedside this afternoon. Patient is still a bit groggy from her cholecystectomy earlier today. Patient reports her abdominal pain has resolved and only returns with certain movements. Denies fever, chills, nausea, vomiting, or other symptoms including CP, SOB, and diarrhea. Review of Systems Review of Systems: See HPI Physical Exam Physical Exam: Constitutional: tired-appearing, no acute distress, laying comfortably in bed HEENT: MMM, no scleral icterus CV: regular rhythm, no murmur appreciated, extremities well-perfused, no LE edema Resp: CTABL, no wheezes/rales/rhonchi appreciated, no increased work of breathing GI: soft, nondistended, mild generalized tenderness, BS present Skin: abdominal laparoscopic incisions C/D/I, covered with dermabond Neuro: alert, oriented, no focal neurologic deficit appreciated Results & Data Results & Data ([facility]) Vital Signs (Past 12 Hours) Vital Signs Temp Pulse Pulse Resp BP BP Pulse Ox 05/07/21 07:31 37.1 C 99 H 18 137/88 94 05/06/21 23:06 36.9 C 80 17 130/86 93 Resident Activity Tracking Resident Involvement: Resident Care Provided Care Provided: Adult Hospital Medicine (1) Pancreatitis Acute pancreatitis complication: unspecified Chronicity: acute Pancreatitis type: biliary Qualified Code(s): K85.10 - Biliary acute pancreatitis without necrosis or infection
[2021-05-07 08:21] LABS: Basophils # (auto) 0.01 K/uL (0-0.2); Basophils % (auto) 0.1 %; Eosinophils # (auto) 0.04 K/uL (0-0.5); Eosinophils % (auto) 0.4 %; Hematocrit (blood only) 28.7 % (37-47); Hemoglobin 8.5 g/dL (12.0-16.0); Immature Granulocytes # (auto) 0.01 K/uL (0.00-0.02); Immature Granulocytes % (auto) 0.1 %; Lymphocytes # (auto) 1.59 K/uL (1.2-3.4); Lymphocytes % (auto) 16.2 %; Mean Corpuscular Hgb Conc 29.6 g/dL (32-36); Mean Corpuscular Volume 77.6 fL (80-100); Mean Platelet Volume 13.1 fL (7.4-10.4); Monocytes % (auto) 6.1 %; Neutrophils # (auto) 7.57 K/uL (1.4-6.5); Neutrophils % (auto) 77.1 %; Platelet Count 385 K/uL (130-400); RDW Coefficient of Variation 14.6 % (11.5-14.5); RDW Standard Deviation 41.6 fL (36.4-46.3); White Blood Count 9.82 K/uL (4.8-10.8)
[2021-05-07 08:40] LABS: Alanine Aminotransferase 95 U/L (7-52); Albumin Globulin Ratio 1.1 (0.9-2); Albumin Level 3.2 gm/dl (3.4-5.0); Alkaline Phosphatase 206 U/L (34-104); Anion Gap 7 (3-11); Aspartate Aminotransferase 53 U/L (13-39); Bilirubin,Total 0.5 mg/dl (0.2-1.0); Blood Urea Nitrogen 6 mg/dl (6-23); Carbon Dioxide 25 mmol/L (21-32); Chloride 105 mmol/L (98-107); Creatinine Clr Calc Pharmacy 292.6 ml/min; Est GFR (African American) > 150.0 ml/min; Est GFR (Non-African American) 146.3 ml/min; Globulin 2.8 gm/dl (2.5-4.0); Glucose 154 mg/dl (70-99); Lipase 186 U/L (11-82); Potassium 3.2 mmol/L (3.5-5.1); Sodium 137 mmol/L (136-145)
[2021-05-07] MEDS ORDERED: ACETAMINOPHEN 1000 MG/100 ML IV IV ONE (08:45)
[2021-05-07] MEDS ORDERED: SCOPOLAMINE 1 MG TDSY TD ONE (08:47)
[2021-05-07] MEDS ORDERED: FAMOTIDINE/PF 20 MG/2 ML VIAL IV ONE (08:47)
--- NOTE | 2021-05-07 08:50 | Anesthesiology Consultation ---
Date of Service May 07, 2021 Assessment & Plan (1) Encounter for pre-operative examination: Chart Review Chart Review: Acceptable Risk for Surgery (Pending test) History Surgery Operation Date: 05/07/21 09:00 Proposed Procedures p Laparoscopic Cholecystectomy - Estuardo Barnes MD, FACS Height/Weight Height: 5 ft 6 in Weight: 91.5 kg Allergies Allergy/AdvReac Type Severity Reaction Status Date / Time No Known Allergies Allergy Unverified 05/05/21 22:01 Medications Home Medications Medication Instructions Recorded Confirmed Last Taken metformin 1,000 mg tablet 1,000 mg PO BID 05/05/21 05/05/21 05/05/21 norethindrone 1 mg-ethinyl 1 tab PO PM 05/05/21 05/05/21 Unknown estradiol 20 mcg (24)-iron 75 mg (4) tablet (Blisovi 24 Fe) sitagliptin 100 mg tablet (Januvia) 100 mg PO QAM 05/05/21 05/05/21 05/05/21 Active Medications Generic Name Dose Route Start Last Admin Trade Name Tigist PRN Reason Stop Dose Admin Piperacillin Sod/Tazobactam 115 mls @ 28.75 mls/hr 05/06/21 06:00 05/07/21 05:47 Sod 3.375 gm/ Dextrose IV 05/16/21 05:59 28.8 mls/hr Q8H MANUELA Administration Protocol Insulin Aspart 0 units 05/06/21 01:00 05/07/21 05:52 Insulin Aspart Per Unit SC 06/05/21 00:59 1 units Q6 MANUELA Administration Insulin Glargine 5 units 05/06/21 01:00 05/06/21 20:39 Insulin Glargine Solostar 100 Units/Ml 3 Ml Pen SC 06/05/21 00:59 5 units BID MANUELA Administration Miscellaneous 1 ea 05/06/21 08:00 05/07/21 00:50 Oral Contraceptive~Order Awaiting Action N/A 06/05/21 07:59 Not Given QS MANUELA NPO Date Last Intake of Fluids: 05/05/21 Time Last Intake of Fluids: 00:00 Date Last Intake of Solids: 05/05/21 Time Last Intake of Solids: 00:00 Past Medical History Medical History (Updated 05/07/21 @ 08:53 by Colton Tyson MD) Anemia Diabetes mellitus Gallstone pancreatitis Polycystic ovarian disease Past Surgical History Surgical History No pertinent past surgical history Social History Smoking Status: Never smoker Hx Alcohol Use: No Hx Substance Use: No Physical Exam Vital Signs Last Vital Signs Temp 37.1 C 05/07/21 07:31 Pulse 99 H 05/07/21 07:31 Resp 18 05/07/21 07:31 BP 137/88 05/07/21 07:31 Pulse Ox 94 05/07/21 07:31 Testing Laboratory Results 05/07/21 07:56 05/07/21 07:56 Urine Color Yellow 05/06/21 15:45 Urine Appearance Clear (Clear) 05/06/21 15:45 Urine pH 8.0 (4.5-7.5) H 05/06/21 15:45 Ur Specific Hollis 1.016 (1.000-1.030) 05/06/21 15:45 Urine Protein Negative (Negative) 05/06/21 15:45 Urine Glucose (UA) Negative (Negative) 05/06/21 15:45 Urine Ketones 1+ (Negative) H 05/06/21 15:45 Urine Nitrite Negative (Negative) 05/06/21 15:45 Ur Leukocyte Esterase Negative (Negative) 05/06/21 15:45 Blood Type A Positive 05/06/21 07:41 Antibody Screen NEGATIVE 05/06/21 07:41 05/05/21 23:25 Aerobic Blood Culture - Preliminary Blood No growth in Aerobic bottle after 24 hours. Anaerobic Blood Culture - Final 05/05/21 23:25 Aerobic Blood Culture - Preliminary Blood No growth in Aerobic bottle after 24 hours. Anaerobic Blood Culture - Preliminary No growth in Anaerobic bottle after 24 hours. 05/06/21 16:24 POC Ur Test Pending
[2021-05-07] MEDS ORDERED: MIDAZOLAM HCL 1 MG/ML 2ML VIAL ONE (08:52)
[2021-05-07] MEDS ORDERED: fentaNYL citrate 100 MCG/2 ML VIAL ONE (08:52)
[2021-05-07 08:57] LABS: Pregnancy Test, Serum Negative (Negative)
[2021-05-07] MEDS ORDERED: PROPOFOL IV EMULSION 10 MG/ML 20 ML VIAL IV ONE (08:58)
[2021-05-07] MEDS ORDERED: ROCURONIUM BROMIDE 10 MG/ML 5 ML VIAL IV ONE (08:58)
[2021-05-07] MEDS ORDERED: ONDANSETRON INJ 2 MG/ML 2 ML VIAL ONE (08:58)
[2021-05-07] MEDS ORDERED: DEXAMETHASONE SOD INJ 4 MG/ML VIAL ONE (08:58)
[2021-05-07] MEDS ORDERED: LIDOCAINE 2% 2 ML VIAL/AMP(20MG/ML) INFIL ONE (08:58)
[2021-05-07] MEDS ORDERED: METOCLOPRAMIDE HCL INJ 5 MG/ML 2 ML VIAL ONE (08:58)
[2021-05-07] MEDS ORDERED: KETOROLAC 30 MG/ML VIAL IV PRN (09:19)
[2021-05-07] MEDS ORDERED: ATROPINE SULFATE 0.1 MG/ML 10ML SYR IV PRN (09:19)
[2021-05-07] MEDS ORDERED: HYDROmorphone INJ 1 MG/ML SYRINGE IV PRN (09:19)
[2021-05-07] MEDS: INSULIN GLARGINE SOLOSTAR 100 UNITS/ML 3 ML PEN SC SCH ×2 (09:19→21:08)
[2021-05-07] MEDS ORDERED: PROMETHAZINE HCL 12.5 MG in SODIUM CHLORIDE 0.9% 50 ML IV PRN (09:19)
[2021-05-07] MEDS ORDERED: ONDANSETRON INJ 2 MG/ML 2 ML VIAL IV PRN (09:19)
[2021-05-07] MEDS ORDERED: BUPIVACAINE 0.5 % 5 MG/1 ML MPF 30ML VIAL ONE (09:32)
[2021-05-07] MEDS ORDERED: LABETALOL HCL IV 5 MG/ML 20ML IV ONE (09:43)
[2021-05-07] MEDS ORDERED: GLYCOPYRROLATE 0.2 MG/ML VIAL ONE (10:13)
[2021-05-07] MEDS ORDERED: NEOSTIGMINE METHYLSULFATE 1 MG/ML 10ML VIAL ONE (10:13)
--- NOTE | 2021-05-07 10:24 | Post Operative Brief Note ---
PG Immediate Post Op with CF Date of Surgery May 07, 2021 Pre & Post Diagnosis Operation Date: 05/07/21 09:00 Pre-Op Diagnosis: GALLSTONE PANCREATITIS Post-Op Diagnosis: GALLSTONE PANCREATITIS, acute cholecystitis I identified the patient and participated in the time-out.: Yes Procedure Operation Date: 05/07/21 09:00 Actual Procedures p Laparoscopic Cholecystectomy(Not Applicable) - Estuardo Barnes MD, FACS Surgeon Estuardo Barnes MD, FACS Inspector Water Pollution Control Nurses Estimated Blood Loss 10 Findings Consistent with Post-Op Diagnosis Patient had acute cholecystitis with severely thickened gallbladder and distention Significant edema Specimens Specimen Description: A. Gall Bladder
--- NOTE | 2021-05-07 11:24 | Anesthesiology Progress Note ---
Date of Service May 07, 2021 Anesthesia Post Procedure Vital Signs Vital Signs: Temp Pulse Pulse Pulse Resp BP BP 05/07/21 11:05 36.2 C L 71 20 107/69 05/07/21 10:55 74 21 108/74 05/07/21 10:45 75 22 111/65 05/07/21 10:35 79 19 116/72 05/07/21 10:29 37 C 94 H 22 117/79 05/07/21 07:31 37.1 C 99 H 18 137/88 05/06/21 23:06 36.9 C 80 17 130/86 05/06/21 15:09 37.1 C 85 20 136/89 Pulse Ox 05/07/21 11:05 94 05/07/21 10:55 93 05/07/21 10:45 92 05/07/21 10:35 92 05/07/21 10:29 92 05/07/21 07:31 94 05/06/21 23:06 93 05/06/21 15:09 94 Pain Intensity Right Abdomen: Pain Intensity: 3 Transfer of Care Handoff Completed per policy Notes Mental Status: alert / awake / arousable Patient Amnestic to Procedure: Yes Nausea / Vomiting: adequately controlled Pain: adequately controlled Airway Patency, RR, SpO2: stable & adequate BP & HR: stable & adequate Hydration State: stable & adequate Anesthetic Complications: no major complications apparent
--- NOTE | 2021-05-07 11:44 | Operative Report (OR) ---
DATE OF OPERATION: 05/07/2021. NAME OF OPERATION: Laparoscopic cholecystectomy. PREOPERATIVE DIAGNOSIS: Gallstone pancreatitis. POSTOPERATIVE DIAGNOSES: Gallstone pancreatitis with acute cholecystitis. STAFF SURGEON: Estuardo Barnes MD. PANTS CLOSER: Nurses. ANESTHESIA: General. DESCRIPTION OF PROCEDURE: The patient was brought in the operating room and placed on the operating table in supine position. Her abdomen was prepped and draped in the usual fashion. A 0.5% plain Mar dasia was used to anesthetize all incisions. An incision was made just above the umbilicus, carrying dissection down to the fascia, placing a Veress needle, pneumoperitoneum was produced. Three 5 mm p orts were placed under visualization after 11 mm port was placed in the umbilicus. Gallbladder was g rasped and retracted. It was distended. It was thickened. It was edematous. Dissection was ava d out to the satnam hepatis, after aspirating the bile from the gallbladder. The patient had signific ant edema in the gallbladder. Cystic duct and cystic artery were identified, clipped and transected. Gallbladder was dissected away from the liver in the usual fashion and placed in an Endobag. After appropriate hemostasis and irrigation, the Endobag was removed through the umbilical site. I did hav e to enlarge the fascial defect somewhat because of the stones in the gallbladder. Fascia at the umb ilicus closed using 0 Vicryl suture. The skin was reapproximated using subcuticular 4-0 Monocryl wit h Dermabond. The patient was transferred to recovery room in stable condition. Job ID: [id number]
[2021-05-07] MEDS ORDERED: HYDROCODONE/ACETAMOPHEN 5/325MG TAB PO PRN (11:50)
[2021-05-07] MEDS ORDERED: Nursing to Pharmacy Communication SCH (12:00)
[2021-05-07] MEDS ORDERED: POTASSIUM CHLORIDE CRTAB 20 MEQ TABCR PO STA (12:56)
[2021-05-07] MEDS ORDERED: IRON SUCROSE 200 MG in 0.9 % SODIUM CHLORIDE 100 ML IV ONE (14:00)
[2021-05-07] MEDS: HYDROCODONE/ACETAMOPHEN 5/325MG TAB PO PRN (19:51)
[2021-05-08 05:47] LABS: Basophils # (auto) 0.02 K/uL (0-0.2); Basophils % (auto) 0.2 %; Eosinophils # (auto) 0.03 K/uL (0-0.5); Eosinophils % (auto) 0.3 %; Hematocrit (blood only) 26.8 % (37-47); Immature Granulocytes # (auto) 0.02 K/uL (0.00-0.02); Immature Granulocytes % (auto) 0.2 %; Lymphocytes # (auto) 1.96 K/uL (1.2-3.4); Lymphocytes % (auto) 20.2 %; Mean Corpuscular Hemoglobin 23.3 pg (25-34); Mean Corpuscular Hgb Conc 29.9 g/dL (32-36); Mean Corpuscular Volume 77.9 fL (80-100); Mean Platelet Volume 12.7 fL (7.4-10.4); Monocytes # (auto) 0.74 K/uL (0.11-0.59); Monocytes % (auto) 7.6 %; Neutrophils # (auto) 6.95 K/uL (1.4-6.5); Neutrophils % (auto) 71.5 %; Platelet Count 369 K/uL (130-400); RDW Coefficient of Variation 15.1 % (11.5-14.5); RDW Standard Deviation 42.8 fL (36.4-46.3); Red Blood Count 3.44 M/uL (4.2-5.4); White Blood Count 9.72 K/uL (4.8-10.8)
[2021-05-08] MEDS: PIPERACILLIN/TAZOBACTAM 3.375 GM in DEXTROSE 5% 100 ML IV SCH ×3 (05:48→21:06)
[2021-05-08 06:07] LABS: Alanine Aminotransferase 89 U/L (7-52); Albumin Globulin Ratio 1.1 (0.9-2); Albumin Level 3.1 gm/dl (3.4-5.0); Alkaline Phosphatase 171 U/L (34-104); Anion Gap 5 (3-11); Aspartate Aminotransferase 54 U/L (13-39); BUN Creatinine Ratio 16.7 (10-20); Bilirubin Direct 0.1 mg/dl (0-0.2); Bilirubin,Total 0.4 mg/dl (0.2-1.0); Blood Urea Nitrogen 6 mg/dl (6-23); Carbon Dioxide 26 mmol/L (21-32); Chloride 106 mmol/L (98-107); Creatinine Clr Calc Pharmacy 243.8 ml/min; Est GFR (African American) > 150.0 ml/min; Est GFR (Non-African American) 137.8 ml/min; Globulin 2.8 gm/dl (2.5-4.0); Glucose 132 mg/dl (70-99(Fasting)); Lipase 20 U/L (11-82); Potassium 3.4 mmol/L (3.5-5.1); Sodium 137 mmol/L (136-145); Total Protein 5.9 gm/dl (6.0-8.3)
--- NOTE | 2021-05-08 06:28 | Surgery Progress Note ---
Date of Service May 08, 2021 Assessment & Plan (1) Status post laparoscopic cholecystectomy: Plan: Patient with incisional pain Feels very weak Admitted with gallstone pancreatitis and also acute cholecystitis Status post laparoscopic cholecystectomy yesterday Patient continues to need supportive care Continue to try to advance diet Have patient walk in the hallway if possible IV antibiotics Admission and Anticipated Discharge Date Admission Date: May 05, 2021 Results & Data ([facility]) Vital Signs (Past 12 Hours) Vital Signs Temp Pulse Resp BP Pulse Ox 05/08/21 03:21 37.5 C 89 16 129/79 96 05/07/21 22:28 37 C 81 18 122/83 94 05/07/21 19:55 36.9 C 82 16 130/86 94 PG Care Time/CCT Total # of Minutes Spent Total Time Spent with Patient: Total time spent is greater than 50% in coordination of care (as documented) at patient's floor/unit and/or counseling patient: Coding Level of Care Code None Diagnoses Status post laparoscopic cholecystectomy Z90.49
--- NOTE | 2021-05-08 08:33 | Hospitalist Progress Note ---
Date of Service May 08, 2021 Assessment & Plan (1) Pancreatitis: Plan: 35yo with DM2 and PCOS presents with a one-day history abdominal pain, found to have gallstone pancreatitis. Patient underwent cholecystectomy on 05/07/21. Gallstone pancreatitis s/p cholecystectomy: - On admission, lipase 5912, T. bili 1.3, AST 237 ALT 125, Alk Phos 125 . - Ultrasound and MRCP consistent with gallstone pancreatitis without signs of biliary obstruction. - GI and surgery consulted this admission, now POD#1 s/p cholecystectomy on 05/07. - Continue morphine prn pain, Zofran prn nausea. - Continue Zosyn for now with transition to PO Augmentin on discharge - Advance diet as tolerated, will increase to full liquids for lunch and to low fiber for dinner if tolerates. Microcytic anemia, blood loss anemia: - Admission Hgb 10.6 with microcytic MCV, and iron studies consistent with iron deficiency anemia. - Venofer 200mg IV given 05/07, will repeat x1 today. - Will initiate ferrous citrate qMWF upon discharge. - Hgb 8.0 today but stable for last several days despite surgery yesterday. - Daily CBC while admitted. DM2 - HbA1c 11.3% (09/2020), repeat A1c today of 8.6%. - Fairly significant improvement since September, will clarify medication and dietary changes made in that interval with the patient. - Patient's home regimen held on admission in favor of basal/bolus insulin. - perinatal educator consulted; will further discuss lifestyle modification today into tomorrow as patient continues to recover. Mild hypokalemia: - Repleted with KCl 40mEq PO x1 on 05/07 and 05/08. - Trend BMP daily while admitted. Expect this will continue to improve as patient tolerates diet. Code status: FULL CODE FEN: full liquid, DM2 diet; advance as tolerated DVT ppx: SCDs Consults: GI, General surgery Dispo: Med/Surg Admission and Anticipated Discharge Date Admission Date: May 05, 2021 Supervising Physician Co-Signing Physician Notes I personally examined the patient and verified all monge points of history and exam, discussed case, and agree with decision making with Dr Teixeira still with a good deal of pain. worse with movement. pain meds do help for ~2hrs or so then start to wear off. improved A1c to ~7.5 late february - meds but also tight carb control and daily walking - then got sick w URI and that plus change in weather led to walking dropping off and eating not quite as good - A1c now ~8.5 vitals noted nad heent nc at mmm breathing unlabored no accessory muscles good effort skin no rashes no pallor or icterus neuro no focal deficits gallstone pancreatitis - now improving, post cholecystectomy - needs ongoing pain control, continue IV abx. otherwise as above DM2 - better control than before, applauded lifestyle change, encouraged to continue Fe def anemia - ongoing IV replacement, outpt f/u otherwise as above Subjective Patient without acute events overnight. Complains of some abdominal pain specifically with attempts at ambulation. Can ambulate with minimal assistance, as getting out of bed is the most challenging. Has not yet had a BM since surgery. Tolerating clear liquid diet well without increased pain or nausea. Review of Systems Review of Systems: All systems reviewed & are unremarkable except as noted in HPI & below Constitutional: no fever, no chills and no malaise Respiratory: no cough and no dyspnea Cardiovascular: no chest pain, no palpitations and no edema Gastrointestinal: + abdominal pain (at incisional sites, with use of abdominal muscles) and + constipation; no diarrhea/loose stools Genitourinary: no dysuria and no hematuria Physical Exam Constitutional: WD/WN, vitals as above Respiratory: normal respiratory effort, lungs clear to auscultation Cardiovascular: RRR, no murmur, no edema Gastrointestinal (Abdomen): normal bowel sounds, soft, nontender, no hepatosplenomegaly Skin: no rashes, warm and dry Psychiatric: A+Ox3, euthymic affect Results & Data Results & Data ([facility]) Vital Signs (Past 12 Hours) Vital Signs Temp Pulse Resp BP Pulse Ox 05/08/21 03:21 37.5 C 89 16 129/79 96 05/07/21 22:28 37 C 81 18 122/83 94 Resident Activity Tracking Resident Involvement: Resident Care Provided Care Provided: Adult Hospital Medicine (1) Pancreatitis Acute pancreatitis complication: unspecified Chronicity: acute Pancreatitis type: biliary Qualified Code(s): K85.10 - Biliary acute pancreatitis without necrosis or infection
[2021-05-08] MEDS: INSULIN ASPART PER UNIT SC SCH ×4 (08:44→21:06)
[2021-05-08] MEDS: INSULIN GLARGINE SOLOSTAR 100 UNITS/ML 3 ML PEN SC SCH ×2 (08:47→21:06)
[2021-05-08] MEDS: HYDROCODONE/ACETAMOPHEN 5/325MG TAB PO PRN (08:48)
[2021-05-08] MEDS ORDERED: IRON SUCROSE 200 MG in 0.9 % SODIUM CHLORIDE 100 ML IV ONE (09:15)
--- NOTE | 2021-05-08 11:20 | Electrocardiogram Report ---
Test Reason : Blood Pressure : / mmHG Vent. Rate : 078 BPM Atrial Rate : 078 BPM P-R Int : 170 ms QRS Dur : 088 ms QT Int : 360 ms P-R-T Axes : 046 016 -19 degrees QTc Int : 410 ms Poor data quality, interpretation may be adversely affected Normal sinus rhythm Minor Nonspecific T wave abnormality Abnormal ECG No previous ECGs available Confirmed by Shravan Morse ([id number]) on 05/08/2021 11:20:23 AM Referred By: Elijah Merritt Confirmed By:Shravan Morse
[2021-05-08 11:40] LABS: Estimated Average Glucose 200 mg/dl; Hemoglobin A1C 8.6 % (4.5-5.6)
[2021-05-08] MEDS ORDERED: POTASSIUM CHLORIDE CRTAB 20 MEQ TABCR PO STA (13:24)
[2021-05-08] MEDS ORDERED: KETOROLAC TROMETHAMINE 15 MG/ML VIAL IV PRN (14:36)
--- NOTE | 2021-05-08 14:40 | Billing Data ---
Date of Service May 08, 2021 Coding Level of Care Code 01222 Subseq Hosp Care Lvl 3
[2021-05-08] MEDS: oxyCODONE HCL IR 5 MG TAB (IMMEDIATE RELEASE) PO PRN (19:50)
[2021-05-08] MEDS: ACETAMINOPHEN 325 MG TAB PO SCH (19:51)
[2021-05-08] MEDS: MELATONIN 3 MG TAB PO PRN (21:06)
[2021-05-09] MEDS: PIPERACILLIN/TAZOBACTAM 3.375 GM in DEXTROSE 5% 100 ML IV SCH ×3 (05:09→23:09)
[2021-05-09] MEDS: oxyCODONE HCL IR 5 MG TAB (IMMEDIATE RELEASE) PO PRN ×3 (05:09→19:33)
[2021-05-09 08:32] LABS: Hematocrit (blood only) 29.6 % (37-47); Hemoglobin 8.7 g/dL (12.0-16.0); Mean Corpuscular Hemoglobin 23.1 pg (25-34); Mean Corpuscular Hgb Conc 29.4 g/dL (32-36); Mean Corpuscular Volume 78.5 fL (80-100); Mean Platelet Volume 12.2 fL (7.4-10.4); Platelet Count 402 K/uL (130-400); RDW Standard Deviation 42.5 fL (36.4-46.3); Red Blood Count 3.77 M/uL (4.2-5.4); White Blood Count 9.51 K/uL (4.8-10.8)
[2021-05-09] MEDS: INSULIN ASPART PER UNIT SC SCH ×4 (08:38→20:45)
[2021-05-09] MEDS: ACETAMINOPHEN 325 MG TAB PO SCH ×3 (08:39→19:34)
[2021-05-09] MEDS: HEPARIN SOD 5,000 UNIT/0.5 ML VIAL SQ SCH ×2 (08:39→19:34)
[2021-05-09] MEDS: INSULIN GLARGINE SOLOSTAR 100 UNITS/ML 3 ML PEN SC SCH ×2 (08:40→20:45)
[2021-05-09 08:58] LABS: Anion Gap 7 (3-11); BUN Creatinine Ratio 16.7 (10-20); Blood Urea Nitrogen 6 mg/dl (6-23); Calcium 8.2 mg/dl (8.5-10.1); Carbon Dioxide 25 mmol/L (21-32); Chloride 104 mmol/L (98-107); Creatinine Clr Calc Pharmacy 243.8 ml/min; Est GFR (African American) > 150.0 ml/min; Est GFR (Non-African American) 137.8 ml/min; Glucose 160 mg/dl (70-99(Fasting)); Potassium 3.5 mmol/L (3.5-5.1); Sodium 136 mmol/L (136-145)
--- NOTE | 2021-05-09 11:11 | Discharge Summary ---
Date of Service May 09, 2021 Admission HPI Per Admitting Provider Sabrina Poole has a past medical history of PCOS and diabetes and presents with abdominal pain. She developed the pain this afternoon and describes it as unbearable lower and upper abdominal pain as well as going to her back. The pain was described 10/10 initially and improved slight while here. She initial though it was gas as it started after she ate. She has had trouble sleeping at night due to recent stressors and has not taken her diabetes medication over the last 2 days. Her blood sugars at home are typically in the range of 135-200. Her most recent A1C is 7.5 down from 10. Social Hx.: denies tobacco, ETOH, rec. drug use ED course: Toradol, Morphine, 1L IVF, Zofran Admission Exam Per Admitting Provider Constitutional: well developed, well nourished, + in distress and + overweight Eyes: PERRL, conjunctivae normal, anicteric sclerae ENMT: external ear and nose normal, oropharynx normal Neck: normal visual inspection Respiratory: normal respiratory effort, lungs clear to auscultation Cardiovascular: RRR, no murmur, no edema Gastrointestinal (Abdomen): - decreased bowel sounds - soft, no guarding - tender to palpitation Musculoskeletal: no cyanosis or clubbing, extremities motor strength 5/5 Skin: no rashes, warm and dry Neurologic: no focal motor deficits Psychiatric: A+Ox3, euthymic affect Principal Diagnosis gallstone pancreatitis Discharge Exam Constitutional WD/WN, vitals as above Respiratory normal respiratory effort, lungs clear to auscultation Cardiovascular RRR, no murmur, no edema Gastrointestinal (Abdomen) Inspection/Auscultation: abdomen normal to inspection and normal bowel sounds mildly tender to palpation, not distended Skin no rashes, warm and dry Psychiatric A+Ox3, euthymic affect Discharge Data Allergies Allergy/AdvReac Type Severity Reaction Status Date / Time No Known Allergies Allergy Unverified 05/05/21 22:01 Consultations 05/05/21 22:18 ED Decision to Admit Stat 05/05/21 22:28 Consult General Surgery Routine 05/06/21 00:41 Consult Gastroenterology Routine Procedures Performed Operation Date: 05/07/21 09:00 Actual Procedures p Laparoscopic Cholecystectomy(Not Applicable) - Estuardo Barnes MD, FACS Ordered Studies 05/05/21 20:33 US gallbladder Stat 05/06/21 00:07 MR MRCP Stat Hospital Course (1) Pancreatitis: 35yo with DM2 and PCOS presents with a one-day history abdominal pain, found to have gallstone pancreatitis. Patient underwent cholecystectomy on 05/07/21. Gallstone pancreatitis s/p cholecystectomy: - On admission, lipase 5912, T. bili 1.3, AST 237 ALT 125, Alk Phos 125 . - Ultrasound and MRCP consistent with gallstone pancreatitis without signs of biliary obstruction. - GI and surgery consulted this admission, now POD#2 s/p cholecystectomy on 05/07. - Tolerating diet well without worsening of pain or nausea. - Transition Zosyn to Augmentin BID x5 days for discharge. - [place] as needed for severe pain, Miralax as needed for constipation. - Discharge today to home; encouraged ambulation and deep breathing to minimize deconditioning and risk of atelectasis. Microcytic anemia, blood loss anemia: - Admission Hgb 10.6 with microcytic MCV, and iron studies consistent with iron deficiency anemia. - Venofer 200mg IV given 05/07 and 05/08, will need repeat CBC and iron studies in several weeks to determine efficacy. - Prescribed iron sulfate qMon/Wed/Fri. - Hgb 8.0 today but stable for last several days despite surgery yesterday. - Daily CBC while admitted. DM2 - HbA1c 11.3% (09/2020), repeat A1c today of 8.6%. - Fairly significant improvement since September, will clarify medication and dietary changes made in that interval with the patient. - Patient's home regimen held on admission in favor of basal/bolus insulin. - Recommended continued discussion with PCP regarding DM2 dietary modification and medication adjustment for A1c goal <7%. Mild hypokalemia: - Repleted with KCl 40mEq PO x1 on 05/07 and 05/08. - Improved to 3.5 with increased diet and supplementation. No further intervention. Dispo: Home with self care (2) Anemia: (3) Diabetes mellitus: Total Time Total Time Spent Total Time Spent (In Minutes): <30 Discharge Plan Discharge Items Patient Disposition: Home - Self-Care Reason For Visit: GALLSTONE PANCREATITIS Discharge Diagnosis: gallstone pancreatitis requiring cholecystectomy Activity: Per Instructions section Activity Comment: light activity for 4 weeks Lifting: No more than 10 pounds Bathing Comment: may shower; no soaking in tubs/pools Sexual Activity: When tolerated Exercise/Sports: Wait until after follow-up appointment Driving/Machine Use: no driving while taking narcotics for pain Non-emergency contact: Primary Care Provider and Surgeon Call non-emergency contact if: you have any medication questions, your pain is worsening, your temperature is above 101, your wound has increased redness and your wound has increased drainage Follow-up/Referrals: Estuardo Barnes MD, FACS [Physician] - 05/24/21 9:15 am Elijah Merritt MD [Primary Care Provider] - (or another provider on his care time if still on leave) Diet: Carb Consistent or DM2 Addtl Attending Provider Instructions: You were admitted to the hospital for belly pain and found to have pancreatitis, inflammation of the pancreas. This was found to be due to gallstones and gallbladder inflammation. Your gallbladder was removed and you were started on IV antibiotics. You started to tolerate your diet well, and were able to walk around without help and without drops in your oxygen level. Because you are a bit more anemic, you received iron infusions to help boost your blood counts over the next few months. You should talk to your primary care doctor about your anemia, as anemia can cause weakness, dizziness, headaches, and trouble breathing. You were prescribed Augmentin, an antibiotic, to be taken for the next five days (one tablet every 12 hours). You were also sent [place], a pain medication to be taken only as needed for severe pain not improving with Tylenol or ibuprofen. You can take Tylenol up to 1000mg every 8 hours for pain, and ibuprofen 600mg every 8 hours as needed for pain. Lastly, you were prescribed ferrous sulfate, an iron supplement to be taken every Saturday, Saturday, and Saturday. Your prescriptions were sent to the [facility] on [facility]. If you are taking [place], and you are getting constipated, you can take one capful of Miralax (can buy at the pharmacy) every day as needed to have soft formed bowel movements. SURGERY SPECIAL CARE INSTRUCTIONS: * Cover incisions and change daily for comfort/drainage. * May use ibuprofen for pain as tolerated. * Expect some swelling and bruising. Call your doctor if: * Temperature above 101 degrees * Pain not relieved by pain medicine ordered * There is increased drainage or redness from any incision * You have any unanswered questions or concerns [phone]. FOLLOW UP VISIT: If not already scheduled, please call the office for a follow-up visit. OFFICE PHONE NUMBER: Dr. Barnes Office Pending Studies at Discharge: No Stand-Alone Forms: My [facility] [employer], Smoking Cessation Medications and DC Order Prescriptions: New hydrocodone-acetaminophen 5-325 mg tablet 1 tab PO Q4H PRN (Reason: pain) Qty: 30 RF: 0 amoxicillin-pot clavulanate [Augmentin] 875-125 mg tablet 1 tab PO BID 5 Days Qty: 10 RF: 0 ferrous sulfate [iron] 325 mg (65 mg iron) tablet 325 mg PO Q OTHER DAY 30 Days Qty: 15 RF: 0 Continued metformin 1,000 mg tablet 1,000 mg PO BID RF: 0 norethindrone-e.estradiol-iron [Blisovi 24 Fe] 1 mg-20 mcg (24)/75 mg (4) tablet 1 tab PO PM RF: 0 Januvia 100 mg tablet 100 mg PO QAM RF: 0 Discharge Orders: Discharge Order (Routine); Ordered 05/10/21 Ordered By: Eunice Raymond/Other Patient Handouts: A1C, High Blood Sugar (Hyperglycemia), Managing Type 2 Diabetes, After Gallbladder Surgery Admission Data Admit Date/Time: 05/05/21 23:09 Attending Provider: Didier Mcmillan Admit Provider: Harsh Khan Primary Care Provider: Elijah Merritt Other Providers: Lashawn Justice ; Estuardo Barnes ; All Ortiz ; Holly Etienne Other Interventions: Discharge Summary Assessment (RN) Last Done: 05/10/21 12:36 Supervising Physician Co-Signing Physician Notes I personally examined the patient and verified all monge points of history and exam, discussed case, and agree with decision making with Dr Teixeira Continues to improve. Feels up to going home. vitals noted nad heent nc at mmm breathing unlabored no accessory muscles good effort skin no rashes no pallor or icterus neuro no focal deficits gallstone pancreatitis - now improving, post cholecystectomy -stable for home DM2 - better control than before, applauded lifestyle change, encouraged to continue Fe def anemia -gave several doses IV replacement, outpt f/u otherwise as above Resident Activity Tracking Resident Involvement: Resident Care Provided Care Provided: Adult [facility] Medicine
[2021-05-09] MEDS ORDERED: SODIUM CHLORIDE 0.9% 1000ML 1,000 ML IV ONE (15:14)
--- NOTE | 2021-05-09 16:50 | Hospitalist Progress Note ---
Date of Service May 09, 2021 Assessment & Plan (1) Pancreatitis: Plan: 35yo with DM2 and PCOS presents with a one-day history abdominal pain, found to have gallstone pancreatitis. Patient underwent cholecystectomy on 05/07/21. Gallstone pancreatitis s/p cholecystectomy: - On admission, lipase 5912, T. bili 1.3, AST 237 ALT 125, Alk Phos 125 . - Ultrasound and MRCP consistent with gallstone pancreatitis without signs of biliary obstruction. - GI and surgery consulted this admission, now POD#3 s/p cholecystectomy on 05/07. - Tolerating diet well without worsening of pain or nausea. - Transitioned Zosyn to Augmentin BID x4 days for discharge. - Lepanto as needed for severe pain, Miralax as needed for constipation. - Discharge tomorrow to home; encouraged ambulation and deep breathing to minimize deconditioning and risk of atelectasis. - While patient is concerned about living alone post-hospitalization, I assured her that she is clinically improving, and that staying longer than required in the hospital does not improve her care and rather puts her at increased risk of deconditioning, infections, and longer path to recovery. She understands this and will call friend today for discharge tomorrow. Microcytic anemia, blood loss anemia: - Admission Hgb 10.6 with microcytic MCV, and iron studies consistent with iron deficiency anemia. - Venofer 200mg IV given 05/07 and 05/08; will need repeat CBC and iron studies in several weeks to determine efficacy. - Prescribed iron sulfate qMon/Wed/Fri. - Hgb 8.0 today but stable for last several days despite surgery. - Advised that weakness to some extent could be secondary to anemia, and that continued treatment of her iron deficiency will assist with this as well. DM2 - HbA1c 11.3% (09/2020), repeat A1c 05/08 of 8.6%. - Fairly significant improvement since September. - Patient's home regimen held on admission in favor of basal/bolus insulin. - Recommended continued discussion with PCP regarding DM2 dietary modification and medication adjustment for A1c goal <7%. Mild hypokalemia: - Repleted with KCl 40mEq PO x1 on 05/07 and 05/08. - Improved to 3.5 today with increased diet and supplementation. No further intervention. Code Status: FULL CODE FEN: low fiber diet DVT ppx: ambulate ad [place] Dispo: Med/Surg (2) Anemia: (3) Diabetes mellitus: Admission and Anticipated Discharge Date Admission Date: May 05, 2021 Supervising Physician Co-Signing Physician Notes I personally examined the patient and verified all monge points of history and exam, discussed case, and agree with decision making with Dr Puneet irby doing better but still very dizzy with standing. doesn't quite feel up for home yet vitals noted nad heent nc at mmm breathing unlabored no accessory muscles good effort skin no rashes no pallor or icterus neuro no focal deficits gallstone pancreatitis - now improving, post cholecystectomy - continue current care. fluid bolus to help w lightheaded/tachy DM2 - better control than before, applauded lifestyle change, encouraged to continue Fe def anemia - ongoing IV replacement (additional dose today), outpt f/u otherwise as above Subjective No acute events overnight. Patient is very nervous about leaving the hospital because she lives on her own. She is feeling weaker than her baseline and feels more weak on standing and walking. Her Pulse ox is 92-95% on room air. She complains of some abdominal pain but no worse today than yesterday and not worse with foods. She did not sleep well last night. Review of Systems Review of Systems: All systems reviewed & are unremarkable except as noted in HPI & below Constitutional: + fatigue; no fever, no chills and no malaise Respiratory: no cough and no dyspnea Cardiovascular: no chest pain, no palpitations and no edema Gastrointestinal: + abdominal pain (at incisional sites, with use of abdominal muscles); no constipation and no diarrhea/loose stools Genitourinary: no dysuria and no hematuria Physical Exam Constitutional: WD/WN, vitals as above Respiratory: normal respiratory effort, lungs clear to auscultation Cardiovascular: RRR, no murmur, no edema Gastrointestinal (Abdomen): normal bowel sounds, soft, nontender, no hepatosplenomegaly Skin: no rashes, warm and dry Psychiatric: A+Ox3, euthymic affect Results & Data Results & Data ([facility]) Vital Signs (Past 12 Hours) Vital Signs Temp Pulse Pulse Resp BP BP Pulse Ox 05/09/21 15:30 37.0 C 93 H 16 117/81 93 05/09/21 15:17 112/80 05/09/21 15:16 36.8 C 105 H 18 120/86 94 05/09/21 14:23 141 H 94 05/09/21 14:10 119 H 18 146/76 H 93 05/09/21 13:49 36.9 C 80 110 H 16 121/76 125/85 94 05/09/21 13:04 110 H 94 05/09/21 10:01 97 H 16 125/85 92 05/09/21 08:02 36.9 C 88 16 116/84 95 Resident Activity Tracking Resident Involvement: Resident Care Provided Care Provided: Adult Hospital Medicine (1) Pancreatitis Acute pancreatitis complication: unspecified Chronicity: acute Pancreatitis type: biliary Qualified Code(s): K85.10 - Biliary acute pancreatitis without necrosis or infection
--- NOTE | 2021-05-09 17:07 | Billing Data ---
Date of Service May 09, 2021 Coding Level of Care Code 13667 Subseq Hosp Care Lvl 2
[2021-05-09] MEDS ORDERED: IRON SUCROSE 200 MG in 0.9 % SODIUM CHLORIDE 100 ML IV ONE (17:15)
[2021-05-09] MEDS: MELATONIN 3 MG TAB PO PRN (19:33)
[2021-05-10] MEDS: oxyCODONE HCL IR 5 MG TAB (IMMEDIATE RELEASE) PO PRN (05:46)
[2021-05-10] MEDS: PIPERACILLIN/TAZOBACTAM 3.375 GM in DEXTROSE 5% 100 ML IV SCH (05:46)
[2021-05-10] MEDS: ACETAMINOPHEN 325 MG TAB PO SCH ×2 (08:53→13:05)
[2021-05-10] MEDS: HEPARIN SOD 5,000 UNIT/0.5 ML VIAL SQ SCH (08:54)
[2021-05-10] MEDS: INSULIN GLARGINE SOLOSTAR 100 UNITS/ML 3 ML PEN SC SCH (08:58)
[2021-05-10] MEDS: INSULIN ASPART PER UNIT SC SCH ×2 (08:59→12:32)
--- NOTE | 2021-05-10 09:08 | Surgery Progress Note ---
Date of Service May 10, 2021 Assessment & Plan (1) Gallstone pancreatitis: Plan: POD#3 lap [place] patient overall doing well tolerating diet, pain manageable incisions c/d/i may be discharged from surgical standpoint f/u in clinic with dr fox in 2 weeks, post op dispo instructions reviewed (2) Status post laparoscopic cholecystectomy: Admission and Anticipated Discharge Date Admission Date: May 05, 2021 Subjective Patient says she is feeling well. A little fatigued, but has been up ambulating. Some expected pain at her incisions that is manageable. Otherwise she is tolerating a diet, no n/v. Physical Exam Physical Exam: awake/alert, no distress Respiratory: normal respiratory effort Gastrointestinal (Abdomen): Inspection/Auscultation: + abdominal surgical incision (c/d/i no signs of infection); abdomen not distended Percussion/Palpation: + abdomen tender (mild discomfort britney incisionlly) and abdomen soft Results & Data ([facility]) Vital Signs (Past 12 Hours) Vital Signs Temp Pulse Resp BP Pulse Ox 05/10/21 08:17 37.1 C 89 16 126/85 90 05/09/21 21:57 37.1 C 73 16 114/75 94 PG Care Time/CCT Total # of Minutes Spent Total Time Spent with Patient: Total time spent is greater than 50% in coordination of care (as documented) at patient's floor/unit and/or counseling patient: Coding Level of Care Code None Diagnoses Gallstone pancreatitis K85.10 Status post laparoscopic cholecystectomy Z90.49
--- NOTE | 2021-05-10 18:03 | Billing Data ---
Date of Service May 10, 2021 Coding Level of Care Code D/C DAY MANAGEMENT <30 MINS
== END 2021-05-10 13:16 | disposition home or self-care (01) | DRG 417 ==
LOC: ED 18:55 → SUATTDRO 23:09 → 3N 23:09